=== PATIENT | female | born 2000 | race African-American/Black ===

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

== ENCOUNTER 2022-10-30 16:04 | Emergency (ER) | payer MEDICAID, SELFPAY ==
[2022-10-30 16:05] VITALS: BP 121/71; PULSE 93; RESP 16; TEMP 36.6; O2SAT 98; BMI 25.4
--- NOTE | 2022-10-30 16:41 | EDS_ITS ---
HPI History of Present Illness Chief Complaint: Ear Problem Detail of Chief Complaint: Right ear pain, right head pain, right shoulder pain Informant: patient Onset/Context/Timing Onset: Month(s) (3 months) Context: Gradual Onset Timing: Waxes and wanes Current Severity: Moderate Maximum Severity: Moderate Narrative Narrative: Patient presents secondary to pain to the right side of her head, neck, shoulder. Symptoms for started in July. She thought she had an ear infection went to urgent care. She was given antibiotic for a mild ear infection but symptoms never seem to resolve. Over the last several weeks symptoms have worsened significantly. She had to leave work early yesterday due to pain. She is been taking Tylenol, ibuprofen, Naprosyn [id number] without improvement. PFSH PFSH Medical History no medical history no medical history Home Medications ferrous sulfate 325 mg (65 mg iron) tablet (Iron (ferrous sulfate)) 325 mg PO BID 01/05/18 [History Last Taken Unknown] amoxicillin 875 mg-potassium clavulanate 125 mg tablet 1 tab PO BID #20 tabs 10/30/22 [Rx Last Taken Unknown] cyclobenzaprine 10 mg tablet 10 mg PO BID PRN muscle spasm #10 tabs 10/30/22 [Rx Last Taken Unknown] fluconazole 150 mg tablet (Diflucan) 150 mg PO DAILY #1 TAB 10/30/22 [Rx Last Taken Unknown] naproxen 500 mg tablet (Naprosyn) 500 mg PO BID PRN pain #20 tabs 10/30/22 [Rx Last Taken Unknown] Allergy/AdvReac Type Severity Reaction Status Date / Time pistachio nut Allergy Swelling Verified 10/30/22 16:07 Social History Smoking Status: Never smoker ROS ROS ED Constitutional Constitutional ED: Denies chills or fever(s) Eyes Eyes: Denies change in vision or discharge from eye(s) ENT ENT ED: Reports ear pain right; Denies discharge from eye(s), rhinorrhea or sore throat Cardiovascular Cardiovascular: Denies chest pain or palpitations Respiratory/Chest Respiratory/Chest: Denies cough or dyspnea Gastrointestinal Gastrointestinal: Denies abdominal pain, diarrhea, nausea or vomiting Genitourinary Genitourinary ED: Denies dysuria Musculoskeletal Musculoskeletal: Reports extremity pain; Denies back pain Integumentary Denies Abrasions or rash Neurologic Neurologic: Denies headache(s) or weakness Psychiatric Psychiatric: Denies anxiety or depression Endocrine Endocrinology: Denies polydipsia or polyuria Allergic/Immunologic Allergic/Immunologic ED: Denies lip swelling or urticaria EXAM Physical Exam Const Vital Signs: 10/30/22 16:05 Temperature 97.8 F Temperature Source Temporal Pulse Rate 93 Respiratory Rate 16 Blood Pressure 121/71 H Blood Pressure Mean 87 Pulse Ox 98 Oxygen Delivery Method Room Air Positive well nourished and well developed General Appearance ED: well developed HEENT Reports normocephalic and head/scalp atraumatic HEENT Narrative: TMs are clear bilaterally with no sign of infection. No tenderness with palpation over the mastoid air cells. Eyes PERRL and EOMs intact bilaterally Neck supple Neck Narrative: No midline cervical tenderness. Chest Wall inspection of chest normal and palpation of chest normal Resp normal respiratory effort and clear to auscultation bilaterally Cardio regular rate and regular rhythm GI normal to inspection, nondistended, normoactive bowel sounds Palpation: soft Extremity normal to inspection Extremity Narrative: Muscular tenderness to palpation over the top of the right shoulder. Palpable spasm noted. Strong distal pulses with full range of motion of the right upper extremity. Neuro oriented x3 and no sensory deficits noted Sensorium / Orientation: alert Motor Exam: strength 5/5 throughout Psych mental status grossly normal Skin no rashes or lesions noted MDM MDM MDM Narrative Medical decision making narrative: Patient sent for CT scan of the head. Radiography Diagnostic Testing: Clinical Impression(s) from Imaging Studies Brain CT 10/30/22 16:41 IMPRESSION: There are no acute intracranial findings. There is mild maxillary sinus disease. No fluid in the middle ears. Electronically Signed: Grabiel Posada MD at 17:21 EST Reading Location ID and State: [facility] / [place] , Service support , Treatment and Re-Evaluation Narrative: CT head reveals no acute intracranial findings. There is mild maxillary sinus disease. No fluid noted in the middle ears. No abnormalities noted along the mastoid air cells. Patient will be treated with a course of Augmentin to cover her sinuses as she has been having ongoing symptoms for the last several months. My suspicion is that a lot of her symptoms are secondary to muscle spasm in the right neck and shoulder region. She will be given Naprosyn and Flexeril. Discharge Plan Triage Chief Complaint: Ear Problem ED Provider: Jeni Narayan Dx/Rx/DC Orders Clinical Impression: Muscle spasm, Sinusitis Instructions: ED Muscle Spasm, ED Sinusitis (Antibiotic Treatment) Prescriptions: New amoxicillin-pot clavulanate 875-125 mg tablet 1 tab PO BID Qty: 20 0RF cyclobenzaprine 10 mg tablet 10 mg PO BID PRN (Reason: muscle spasm) Qty: 10 0RF naproxen [Naprosyn] 500 mg tablet 500 mg PO BID PRN (Reason: pain) Qty: 20 0RF fluconazole [Diflucan] 150 mg tablet 150 mg PO DAILY Qty: 1 0RF No Action ferrous sulfate [Iron (ferrous sulfate)] 325 MG tablet 325 mg PO BID Primary Care Provider: Care Physician,No Primary Referrals: Malachi Miller MD [Med Staff - [employer]] - 1-2 Weeks NOT,DEFINED [Non-Staff] - Disposition Disposition: Home, Self Care
--- NOTE | 2022-10-30 16:41 | CT_ITS ---
STUDY: CT BRAIN WITHOUT CONTRAST REASON FOR EXAM: Female, 21 years old. pain -- right ear, head pain TECHNIQUE: Transaxial CT imaging of the brain was performed without administration of intravenous contrast material. Individualized dose optimization techniques were used for this CT. COMPARISON: 01.14.17 FINDINGS: Normal calvarium. Normal soft tissues. Normal size ventricles and extra-axial spaces for the patient''s age. Normal white matter tracts of the cerebral hemispheres. Normal basal ganglia and thalami. Normal brainstem. Normal cerebellum. There is no intracranial hemorrhage. There are no findings of an acute ischemic infarction. There is mild maxillary sinus disease. ASPECTS 10 CT/Brain/Head without Contrast IMPRESSION: There are no acute intracranial findings. There is mild maxillary sinus disease. No fluid in the middle ears. Electronically Signed: Grabiel Posada MD at 17:21 EST ,
== END 2022-10-30 18:19 | disposition home or self-care (01) ==
PROVIDERS: Emergency Provider Emergency Medicine; Visit Provider Emergency Medicine
DX: M62.838 Other muscle spasm (principal); J32.9 Chronic sinusitis, unspecified
CPT/HCPCS: 70450; 99282

== ENCOUNTER 2024-12-05 11:36 | Observation (INO) | payer SELFPAY ==
[2024-12-05] VITALS (14 sets, daily range): BP systolic 94–112; BP diastolic 52–77; PULSE 47–78; RESP 14–19; TEMP 36.4–36.6; O2SAT 95–100; BMI 26.2; BMI 25.7
--- NOTE | 2024-12-05 14:09 | EKG12_ITS ---
Test Reason : Blood Pressure : */* mmHG Vent. Rate : 67 BPM Atrial Rate : 67 BPM P-R Int : 162 ms QRS Dur : 82 ms QT Int : 386 ms P-R-T Axes : 61 68 12 degrees QTcB Int : 407 ms Sinus rhythm with marked sinus arrhythmia Otherwise normal ECG Confirmed by KATT HOUGH, OSMEL ([id number]), editorial intern RUDDY MALIK ([id number]) on 12/08/2024 7:28:20 AM Referred By: MARIA M Confirmed By: OSMEL BOLIVAR MD
--- NOTE | 2024-12-05 14:09 | CT_ITS ---
PROCEDURE: SINUS/FACIAL BONE REASON FOR EXAM: Injury. TECHNIQUE: CT of the paranasal sinuses without contrast. COMPARISON: Comparison is made with prior CT scan of the head done earlier in the day. FINDINGS: Frontal: Frontal sinuses and frontoethmoidal recesses appear clear. Ethmoid: Ethmoid air cells appear clear. Sphenoid: Sphenoid sinuses and sphenoethmoidal recesses appear clear. Maxillary: Maxillary sinuses appear clear. The ostiomeatal units appear widely patent. Turbinates: Unremarkable. Nasal Septum: Midline. No large nasal septal spur. Mastoids/Middle Ears: Clear at visualized levels. Visualized intracranial structures are unremarkable. CT/Sinus/Facial Bone IMPRESSION: No acute abnormality is seen. One or more dose reduction techniques were used (e.g., Automated exposure contr ol, adjustment of the mA and/or kV according to patient size, use of iterative reconstruction technique). Reading Location: [place] [id number]
--- NOTE | 2024-12-05 14:09 | CT_ITS ---
EXAM: BRAIN/HEAD WITHOUT CONTRAST CLINICAL HISTORY: History of seizures. COMPARISON: None. TECHNIQUE: Multiple axial tomographic images were obtained without intravenous contrast administration. Coronal and sagittal reconstruction was obtained as well. FINDINGS: No evidence of intracranial hemorrhage. No mass effect. Normal examination. CT/Brain/Head without Contrast IMPRESSION: Normal examination. Reading Location: [place] [address]
[2024-12-05 14:17] LABS: Absolute Lymphocyte Count 0.85 X10^3/uL (0.83-4.51); Absolute Neutrophil Count 2.5 X10^3/uL (2.0-7.7); Basophil# 0.02 X10^3/uL; Basophil% 0.5 % (0-1); Eosinophil# 0.05 X10^3/uL; Eosinophils% 1.3 % (0-5); Hematocrit 33.7 % (37-47); Hemoglobin 10.6 g/dL (12.0-15.0); Lymphocyte # 0.85 X10^3/ul (0.83-4.51); Lymphocyte % 22.3 % (19-41); Mean Corp Hgb Conc 31.5 g/dL (32-36); Mean Corpuscular Hgb 26.6 pg (27.0-32.0); Mean Corpuscular Volume 84.5 fL (81-99); Mean Platelet Vol. 10.1 fl (6.2-12.0); Monocyte# 0.38 X10^3/uL; Monocyte% 9.9 % (0-10); NRBC Flagged by Analyzer 0 % (0-5); Neutrophil # 2.51 X10^3/uL (2.7-7.7); Neutrophil % 65.7 % (47-70); Platelet Count 242 K/mm3 (150-450); RBC Distribution Width SD 43.1 fl (35.1-43.9); Red Blood Count 3.99 M/mm3 (4.2-5.4); White Blood Count 3.8 K/mm3 (4.4-11.0)
[2024-12-05] MEDS: Morphine 4 MG/ML Syringe IV (14:24)
--- NOTE | 2024-12-05 14:41 | EX.ED.DYSGE1 ---
HPI History of Present Illness Chief Complaint: Seizure Informant: patient and parent Narrative Narrative: Patient is a 23-year-old female with prior history of possible seizure versus syncope but does not have a diagnosis of epilepsy presenting after an episode of falling in her bathroom and knocking out her front tooth. Patient states she had a particularly stressful day yesterday. She also notes she was started. Complaint of pelvic cramps. She was not feeling great today and had been texting her mom. Patient remembers texting her mom of the next and she knows she woke up in the bathroom floor with blood running down her face and her front tooth missing. She then called her mom. Mother states this happened around 11 AM. Patient does not remember what happened immediately before that does not he remember walking to the bathroom. She does not take any medication on a daily basis. Patient has similar episode where she was found on the ground back in 2019 and it was thought that maybe she has seizures but she does not see a neurologist regularly take any antiepileptic medications. Per EMS instructions she did bring her tooth in with root intact in a container of oat milk. She is complaining of headache, facial pain as well as abdominal pain which she contributes to her menstrual cramps. Grandfather on maternal side has a history of heart disease and in his 60s but no other medical history reported by the family. Mother is at the bedside. [facility] Medical History (Updated 12/05/24 @ 23:[address] Mesha Tomas, DO) Seizure Anemia Home Medications ?Medication ?Instructions ?Recorded ?Last Taken ?Type NK 12/05/24 Unknown History Allergy/AdvReac Type Severity Reaction Status Date / Time pistachio nut Allergy Swelling Verified 12/05/24 11:37 Family History (Updated 12/05/24 @ 20:[address] Sylvie Devries MD) Mother No problems noted. Father Heart disease Hypertension Heart failure Grandfather , Paternal. Heart disease Heart failure Hypertension PAF (paroxysmal atrial fibrillation) Grandfather , Paternal Heart disease Surgical History No history of previous surgery Social History (Updated 12/05/24 @ 20:[address] Sylvie Devries MD) household members: none housing: apartment Smoking Status: Current every day smoker tobacco type: e-cigarettes alcohol intake: current alcohol intake frequency: holidays/special occasions only substance use type: does not use ROS ROS ED Constitutional Constitutional ED: Denies chills or fever(s) Eyes Eyes: Denies change in vision ENT ENT ED: Reports other Details: Dental trauma, lip pain, facial pain Cardiovascular Cardiovascular: Denies chest pain Respiratory/Chest Respiratory/Chest: Denies cough or dyspnea Gastrointestinal Gastrointestinal: Reports abdominal pain; Denies diarrhea, nausea or vomiting Musculoskeletal Musculoskeletal: Denies arthralgias, myalgias or neck pain Integumentary Reports Abrasions Neurologic Neurologic: Reports headache(s), weakness and other Details: Seizure versus syncopal episode ; Denies paresthesias Hematologic/Lymphatic Hematologic/Lymphatic: Denies easy bleeding or easy bruising EXAM Physical Exam Const Vital Signs: 12/05/24 11:37 12/05/24 12:37 12/05/24 13:00 Temperature 97.8 F Temperature Source Temporal Pulse Rate 77 47 L 49 L Pulse Rate [Lying] Respiratory Rate 14 16 16 Blood Pressure 94/76 106/72 104/65 Blood Pressure [Lying] Blood Pressure [Sitting (for 1 minute prior to obtaining)] Blood Pressure [Standing (for 1 minute prior to obtaining)] Blood Pressure Mean 82 83 78 Blood Pressure Mean [Lying] Blood Pressure Mean [Sitting (for 1 minute prior to obtaining)] Blood Pressure Mean [Standing (for 1 minute prior to obtaining)] Pulse Ox 100 100 100 Oxygen Delivery Method Room Air 12/05/24 14:00 12/05/24 15:00 12/05/24 16:00 Temperature Temperature Source Pulse Rate 62 59 L 73 Pulse Rate [Lying] Respiratory Rate 18 17 15 Blood Pressure 108/65 103/62 111/67 Blood Pressure [Lying] Blood Pressure [Sitting (for 1 minute prior to obtaining)] Blood Pressure [Standing (for 1 minute prior to obtaining)] Blood Pressure Mean 79 75 81 Blood Pressure Mean [Lying] Blood Pressure Mean [Sitting (for 1 minute prior to obtaining)] Blood Pressure Mean [Standing (for 1 minute prior to obtaining)] Pulse Ox 100 98 99 Oxygen Delivery Method Room Air Room Air Room Air 12/05/24 17:00 12/05/24 17:55 12/05/24 18:00 Temperature Temperature Source Pulse Rate 57 L 78 Pulse Rate [Lying] 75 Respiratory Rate 16 15 Blood Pressure 108/66 112/77 Blood Pressure [Lying] 105/58 L Blood Pressure [Sitting (for 1 minute prior to obtaining)] 99/52 L Blood Pressure [Standing (for 1 minute prior to obtaining)] 111/66 Blood Pressure Mean 80 88 Blood Pressure Mean [Lying] 73 Blood Pressure Mean [Sitting (for 1 minute prior to obtaining)] 67 Blood Pressure Mean [Standing (for 1 minute prior to obtaining)] 81 Pulse Ox 98 100 Oxygen Delivery Method 12/05/24 19:00 Temperature Temperature Source Pulse Rate 61 Pulse Rate [Lying] Respiratory Rate 16 Blood Pressure 105/64 Blood Pressure [Lying] Blood Pressure [Sitting (for 1 minute prior to obtaining)] Blood Pressure [Standing (for 1 minute prior to obtaining)] Blood Pressure Mean 77 Blood Pressure Mean [Lying] Blood Pressure Mean [Sitting (for 1 minute prior to obtaining)] Blood Pressure Mean [Standing (for 1 minute prior to obtaining)] Pulse Ox 95 Oxygen Delivery Method Positive well nourished and well developed General Appearance ED: well developed and NAD HEENT Reports TM's clear and moist mucous membranes HEENT Narrative: No obvious malocclusion or trismus. There is dried blood on the patient's face that seem to be coming from her mouth and possibly the right nares but no active epistaxis. No septal hematoma appreciated. Patient's left upper central incisor is missing and at the bedside with the root intact. She has Guy type I fracture to the right upper central incisor. No other dental fracture/avulsion appreciated. Patient does have a superficial laceration to her lower lip that does not involve the vermilion border and is not gaping. trauma Tympanic Membrane ED: Yes TM's clear Eyes PERRL and EOMs intact bilaterally Neck supple General: Negative for tenderness Chest Wall inspection of chest normal and palpation of chest normal Resp normal respiratory effort and clear to auscultation bilaterally Cardio regular rate and regular rhythm GI non-distended Inspection: Negative for abdominal distention Auscultation: normoactive bowel sounds Palpation: soft and tender suprapubic; Negative for guarding Extremity normal to inspection Extremity Narrative: No deformity of extremities. General Extremety ED: Negative for edema or tenderness General Extremity: Negative for edema Neuro oriented x3 Neuro Narrative: No focal deficits appreciated. Moving all extremities. Generally weak and tired but answers questions appropriately. Sensorium / Orientation: alert Motor Exam: general weakness Psych Mood & Affect: depressed and tearful Skin no rashes or lesions noted Skin Narrative: Facial trauma described in ENT exam MDM MDM MDM Narrative Medical decision making narrative: Patient's evaluated for syncopal versus seizure activity. This was not witnessed. Patient does not remember falling or even being in her bathroom. She remembers waking up on the floor with blood around her face. She sustained significant injury with avulsion of her left center upper incisor. See procedure note but reimplantation attempted in the emergency room. Differential includes cardiogenic syncope, vasovagal syncope, hypovolemia, electrolyte abnormality, symptomatic anemia and seizure-like activity. Also intracranial hemorrhage, jaw fracture no other traumatic injury. Workup shows microcytic anemia with a hemoglobin of 10.6 and a mild leukopenia with white blood cell count of 3.8. Platelets are normal. CMP normal. Liver panel normal. Urinalysis does show 50 ketones but not consistent with infection. She does have positive opiates and her drug screen with this is obtained after patient received IV morphine. EKG shows normal sinus rhythm with sinus arrhythmia. Patient does have intermittent bradycardia down into the 40s in the emergency room but is not sustained. CT imaging does not show any acute traumatic process. The cause of her fall and injury is not clear. Did offer the patient admission for overnight evaluation. In addition for further pain control. Patient is agreeable. Case discussed with hospitalist, Dr. Devries. While in the ER patient initially received morphine for pain control and then dental block. She then received Toradol, IV fluids and [place]. Lab Data Attestation: I reviewed the patient's lab results. Labs: Laboratory Results - last 24 hr 12/05/24 12/05/24 12:33 17:00 WBC 3.8 L RBC 3.99 L Hgb 10.6 L Hct 33.7 L MCV 84.5 MCH 26.6 L MCHC 31.5 L RDW Std Deviation 43.1 RDW Coeff of Dominick 14.0 Plt Count 242 MPV 10.1 Immature Gran % (Auto) 0.300 Neut % (Auto) 65.7 Lymph % (Auto) 22.3 [place] % (Auto) 9.9 Eos % (Auto) 1.3 Baso % (Auto) 0.5 Absolute Neuts (auto) 2.5 Absolute Lymphs (auto) 0.85 Nucleated RBC % 0 Sodium 141 Potassium 3.4 L Chloride 106 Carbon Dioxide 25.0 Anion Gap 9 BUN 18 Creatinine 0.76 Estim Creat Clear Calc 100.78 Est GFR (MDRD) Af Amer 123 Est GFR (MDRD) Non-Af 102 BUN/Creatinine Ratio 23.8 H Glucose 86 Calcium 8.7 Magnesium 1.9 Total Bilirubin 0.40 AST 13 L ALT 18 Alkaline Phosphatase 53 Total Protein 7.2 Albumin 3.5 Globulin 3.7 Albumin/Globulin Ratio 0.9 Vitamin B12 445 Urine Color Yellow Urine Clarity Clear Urine pH 6.0 Ur Specific [place] 1.020 Urine Protein 100 H Urine Glucose (UA) Normal Urine Ketones 50 H Urine Occult Blood 25 H Urine Nitrite Negative Urine Bilirubin Negative Urine Urobilinogen Normal Ur Leukocyte Esterase Negative Urine RBC 0 SEEN Urine WBC 0-5 SEEN Ur Squamous Epith Cells 0-5 SEEN Urine Bacteria 0 SEEN Urine Mucus 0 SEEN Urine Test Negative Urine Opiates Screen POSITIVE H Urine Methadone Screen NEGATIVE Ur Barbiturates Screen NEGATIVE Ur Phencyclidine Scrn NEGATIVE Ur Amphetamines Screen NEGATIVE MDMA (Ecstasy) Screen NEGATIVE U Benzodiazepines Scrn NEGATIVE Urine Cocaine Screen NEGATIVE U Cannabinoids Screen NEGATIVE Ur Drug Screen Comment Radiography Diagnostic Testing: Clinical Impression(s) from Imaging Studies Brain CT 12/05/24 14:09 IMPRESSION: Normal examination. Reading Location: [place] [id number] Facial/Sinus 12/05/24 14:09 IMPRESSION: No acute abnormality is seen. One or more dose reduction techniques were used (e.g., Automated exposure control, adjustment of the mA and/or kV according to patient size, use of iterative reconstruction technique). Reading Location: [place] [id number] Rhythm Strip Rhythm Strip: Sinus Rhythm Rate: 67 Ectopy: None EKG Initial EKG: Attestation: I personally reviewed and interpreted this EKG as follows: Interpretation: Sinus Rhythm Comments: Normal sinus rhythm at a rate of 67 beats per minutes with sinus arrhythmia Normal axis Normal intervals Normal ST segments No delta waves, dagger Q waves consistent with HOCM, prolonged QT or WI interval Prior EKG tracings: not available for review Prior: No Prior Management Discussion w/another healthcare provider: Hospitalist Procedures Other Procedures Procedure(s): Tooth avulsion with replacement and splinting of tooth number 7 Performed emergently to help decrease the chance of rejecting the tooth. Tooth is taken out of it milk bath. Care taken to avoid handling the root. Rinsed off with normal saline. Inserted back into the gum line. Is still slightly extruded. Cold pack used to splint the tooth anterior and posterior. In the meantime periosteal/inferior alveolar block performed for better pain control. Further direct pressure applied to get back to anatomic alignment of the tooth. Patient pain but tolerated procedure well. No immediate complications. Discharge Plan Dx/Rx/DC Orders Clinical Impression: Collapse, Tooth avulsion Disposition Disposition: Acute Care Hospital [facility] Discharge Date/Time: 12/05/24 21:56
[2024-12-05 14:43] LABS: ALB/GLOB Ratio 0.9 RATIO (0.9-2.4); AST(SGOT) 13 U/L (15-37); Alanine Aminotransfer ALT/SGPT 18 U/L (13-56); Albumin, Serum 3.5 g/dL (3.2-5.0); Alkaline Phosphatase 53 U/L (45-117); Anion Gap 9 (5-15); BUN 18 mg/dL (7-18); BUN/Creat Ratio 23.8 RATIO (10-20); Calcium,Total 8.7 mg/dL (8.5-10.1); Chloride 106 mmol/L (98-107); Creatinine, Serum 0.76 mg/dL (0.55-1.02); EST Glomerular Filtration Rate 102 mL/min (>60); Est Glom Filt Rate - Afr Amer 123 mL/min (>60); Estimated Creatinine Clearance 100.78 ml/min; Globulin 3.7 g/dL (2.2-4.2); Glucose 86 mg/dL (74-106); Potassium 3.4 mmol/L (3.5-5.1); Protein, Total 7.2 g/dL (6.4-8.2); Sodium Level 141 mmol/L (136-145)
[2024-12-05] MEDS: Bupivacaine 0.5%/Epi 1.8 ML Syringe INFILT (15:07)
[2024-12-05] MEDS: Acetaminophen 325 MG Tablet 650 MG PO ×2 (15:52→23:07)
[2024-12-05] MEDS: 0.9% Normal Saline (1000mL) 1,000 ML 999 ML IV (15:52)
[2024-12-05] MEDS: Ketorolac 15 MG/ML Vial IV ×2 (15:52→22:55)
[2024-12-05 17:13] LABS: Bacteria 0 SEEN /hpf (None Seen); Mucous, Urine 0 SEEN /hpf (<or=2+)
[2024-12-05 17:19] LABS: Color, Urine Yellow (Yellow); Glucose, Dipstick Normal (Normal); Ketone-Dipstick 50 mg/dl (Negative); Leukocyte Esterase-Dipstick Negative /ul (Negative); Nitrite-Dipstick Negative (Negative); Occult Blood-Urine 25 /ul (Negative); Protein-Dipstick 100 mg/dl (Negative); Urine Bilirubin Dipstick Negative (Negative); Urine Clarity Clear (Clear); Urine Urobilinogen Normal (Normal)
[2024-12-05 17:36] LABS: Internal QC Validated? YES +Cl - CLEAR BKGD; Pregnancy, Urine Negative Negative; Red Blood Cells-Urine 0 SEEN /hpf (0-5); Squamous Epithelial Cells - UA 0-5 SEEN /hpf (5-10); White Blood Cells 0-5 SEEN /hpf (0-5)
[2024-12-05 17:47] LABS: Amphetamine Urine NEGATIVE (<1000 ng/mL); Barbiturate Urine VISTA NEGATIVE (< 200 ng/mL); Benzodiazepine Urine VISTA NEGATIVE (< 200 ng/mL); Cocaine Urine VISTA NEGATIVE (< 300 ng/mL); Ecstacy Urine VISTA NEGATIVE (< 500 ng/mL); Methadone Urine VISTA NEGATIVE (< 300 ng/mL); Opiates Urine POSITIVE (< 300 ng/mL); PCP Urine NEGATIVE (< 25 ng/mL); THC Urine VISTA NEGATIVE (< 50 ng/mL); Vista UDS pH Range 5
--- NOTE | 2024-12-05 19:58 | PCM.HP.STD ---
HPI - General General Date of Admission: 12/05/24 Date of Service: 12/05/24 Chief Complaint: Syncope versus seizure HPI Narrative The patient is a 23-year-old female with previously noted past medical history transient anemia in 2017 otherwise low normal hemoglobin level of unclear etiology who presents to the [facility] ED on 12/05/2024 with history of possible syncopal versus questionable seizure activity noting that she been in the bathroom and awoke on the floor reportedly having pelvic cramps starting up to it and initially feeling not very well texting her mother at that time just prior to the event. Patient notes that she woke with blood running down her face and saw that her front tooth was missing prompting a call to her mother who noted this was approximate around 11 AM. She does not remember what happened immediately before the event. She notes that she had a similar episode in 2019 and there was some question of seizure activity but she is not followed with neurologist and is not on any antiepileptic medications. In the ED patient is complaining of facial discomfort, headache as well as abdominal cramping noting that it is currently her menstrual cycle. She did not loose bowel or bladder function during the event. She does report she was groggy after the event upon awaking but was able to function and interact with her mother but was very fatigued per her mother's report. Patient denies her cycles being heavy but reports that she has them for 3 to 5 days and uses at least 4 tampons daily thus some concern that maybe they are heavy and she is just used to this. She notes that in the past when she had her syncopal versus seizure event she was not on her cycle at that time. 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 From discussion with her and her mother she is very close to her family so being away from her mother has been very stressful. This is the first time she is lived on her own and had a job to pay for all her bills and so forth. From discussion likely patient is not hydrating well enough. In the ED workup included T97.8, heart rate 77, BP 94/76, respiratory rate 14, under percent on room air, orthostatics with some alteration but not enough to be considered significant, most recent repeat vitals heart rate 61, BP 105/64, respiratory rate 77, 95% room air, CBC with WC 3.8, hemoglobin 10.6, MCV 84.5, platelet 242 without shift, CMP with potassium 3.4 otherwise unremarkable, urinalysis with no obvious evidence of UTI with specific gravity mildly elevated 1.020, negative testing, UDS with positive opiates but she had morphine in the ED ~ 2 hours prior to the UA being obtained, CT the brain unremarkable, CT facial/sinus with no acute abnormality identified. In the ED given tooth avulsion replacement performed per ED physician as well as splinting of tooth #7 noted to have been taken out of the milk bath, who rinsed with normal saline and inserted back into the gumline with cold packing with noted periosteal/inferior alveolar block for improved pain control. In the ED patient ministered 1 L normal saline, Tylenol 650 mg p.o. x 1, Toradol 50 mg IV x 1, morphine 4 mg IV x 1 and bupivacaine/epi used for block. [facility] Medical History (Updated 12/05/24 @ 20:[address] Sylvie Devries MD) Anemia Home Medications ?Medication ?Instructions ?Recorded ?Last Taken ?Type NK 12/05/24 Unknown History Allergy/AdvReac Type Severity Reaction Status Date / Time pistachio nut Allergy Swelling Verified 12/05/24 11:37 Family History (Updated 12/05/24 @ 20:[address] Sylvie Devries MD) Mother No problems noted. Father Heart disease Hypertension Heart failure Grandfather , Paternal. Heart disease Heart failure Hypertension PAF (paroxysmal atrial fibrillation) Grandfather , Paternal Heart disease Surgical History (Updated 12/05/24 @ 20:[address] Sylvie Devries MD) No history of previous surgery Social History (Updated 12/05/24 @ 20:[address] Sylvie Devries MD) household members: none housing: apartment Smoking Status: Never smoker alcohol intake: current alcohol intake frequency: holidays/special occasions only substance use type: does not use ROS ROS Narrative Admission Review of Systems: CONSTITUTIONAL: No weight loss, fever, chills,+ weakness or fatigue. HEENT: + Trauma to the face with small laceration to the lip with no current bleeding, seventh tooth avulsion corrected per ED, mild headache. Eyes: No visual loss, blurred vision, double vision or yellow sclerae. Ears, Nose, Throat: No hearing loss, sneezing, congestion, runny nose or sore throat. SKIN: No rash or itching, lesions, wounds. CARDIOVASCULAR: + Questionable syncopal versus seizure event. No chest pain, chest pressure or chest discomfort, palpitations, edema, orthopnea. RESPIRATORY: No shortness of breath, cough or sputum, wheezing, hemoptysis. GASTROINTESTINAL: No anorexia, nausea, vomiting or diarrhea, abdominal pain, melena, BRBPR. GENITOURINARY: No dysuria, frequency, urgency or retention. NEUROLOGICAL: + Questionable syncopal versus seizure event, mild headache. No headache, paralysis, ataxia, numbness or tingling in the extremities, focal weakness, change in bowel or bladder control, seizure. MUSCULOSKELETAL: + muscle, back pain, joint pain or stiffness. HEMATOLOGIC: + Anemia, currently on menstrual cycle, no easy bruising. LYMPHATICS: No enlarged nodes. No history of splenectomy. PSYCHIATRIC: + No history of anxiety/depression but suspect may have underlying undiagnosed. ENDOCRINOLOGIC: No reports of sweating, cold or heat intolerance. No polyuria or polydipsia. ALLERGIES: No history of asthma, hives, eczema or rhinitis. Vital Signs Vital Signs Vital Signs: 12/05/24 11:37 12/05/24 12:37 12/05/24 13:00 Temperature 97.8 F Temperature Source Temporal Pulse Rate 77 47 L 49 L Pulse Rate [Lying] Respiratory Rate 14 16 16 Blood Pressure 94/76 106/72 104/65 Blood Pressure [Lying] Blood Pressure [Sitting (for 1 minute prior to obtaining)] Blood Pressure [Standing (for 1 minute prior to obtaining)] Blood Pressure Mean 82 83 78 Blood Pressure Mean [Lying] Blood Pressure Mean [Sitting (for 1 minute prior to obtaining)] Blood Pressure Mean [Standing (for 1 minute prior to obtaining)] Pulse Ox 100 100 100 Oxygen Delivery Method Room Air 12/05/24 14:00 12/05/24 15:00 12/05/24 16:00 Temperature Temperature Source Pulse Rate 62 59 L 73 Pulse Rate [Lying] Respiratory Rate 18 17 15 Blood Pressure 108/65 103/62 111/67 Blood Pressure [Lying] Blood Pressure [Sitting (for 1 minute prior to obtaining)] Blood Pressure [Standing (for 1 minute prior to obtaining)] Blood Pressure Mean 79 75 81 Blood Pressure Mean [Lying] Blood Pressure Mean [Sitting (for 1 minute prior to obtaining)] Blood Pressure Mean [Standing (for 1 minute prior to obtaining)] Pulse Ox 100 98 99 Oxygen Delivery Method Room Air Room Air Room Air 12/05/24 17:00 12/05/24 17:55 12/05/24 18:00 Temperature Temperature Source Pulse Rate 57 L 78 Pulse Rate [Lying] 75 Respiratory Rate 16 15 Blood Pressure 108/66 112/77 Blood Pressure [Lying] 105/58 L Blood Pressure [Sitting (for 1 minute prior to obtaining)] 99/52 L Blood Pressure [Standing (for 1 minute prior to obtaining)] 111/66 Blood Pressure Mean 80 88 Blood Pressure Mean [Lying] 73 Blood Pressure Mean [Sitting (for 1 minute prior to obtaining)] 67 Blood Pressure Mean [Standing (for 1 minute prior to obtaining)] 81 Pulse Ox 98 100 Oxygen Delivery Method 12/05/24 19:00 Temperature Temperature Source Pulse Rate 61 Pulse Rate [Lying] Respiratory Rate 16 Blood Pressure 105/64 Blood Pressure [Lying] Blood Pressure [Sitting (for 1 minute prior to obtaining)] Blood Pressure [Standing (for 1 minute prior to obtaining)] Blood Pressure Mean 77 Blood Pressure Mean [Lying] Blood Pressure Mean [Sitting (for 1 minute prior to obtaining)] Blood Pressure Mean [Standing (for 1 minute prior to obtaining)] Pulse Ox 95 Oxygen Delivery Method Weight Weight: 142 lb 6.698 oz Body Mass Index (BMI) 26.2 Physical Exam Narrative Physical Examination: General: Awake, alert, oriented x 3 and cooperative, seated upright in the ED bed, very flat affect, not frequently making eye contact, intermittently tearful. Skin: Normal color, normal turgor, no icterus, no cyanosis except for small superficial laceration to the lower lip with no active bleeding, recent tooth avulsion corrected per ED. HEENT: AT aside from tooth avulsion which has been corrected and small superficial laceration to the lower lip/NC, EOMI, PERRLA, mildly dry MM, no carotid bruits or JVD noted, see skin. Lungs: Mildly diminished, appropriate effort, no rales, ronchi or wheezing. Heart: Currently regular rate, sinus arrhythmia noted on air sampling and monitoring; no gallop, rub audible. Abdomen: Soft, NTTP, ND, normal BS, no HSM. Extremities: No cyanosis, clubbing, or edema. Neurological: Patient awake, alert, oriented as noted, cognitive function intact; pupils equally reactive to light and accommodation, cranial nerves grossly normal, moving all 4 extremities, no focal deficits, strength preserved. Psychiatric: Affect appears flat, fatigued, not making eye contact regularly, do suspect possibility of underlying anxiety/depression, situational, recently moved out of her mother's home and living on her own for the last 3 months. Results Lab / Micro Data 12/05/24 12:33 12/05/24 12:33 Labs: Laboratory Results - last 24 hr 12/05/24 12:33: WBC 3.8 L, RBC 3.99 L, Hgb 10.6 L, Hct 33.7 L, MCV 84.5, MCH 26.6 L, MCHC 31.5 L, RDW Std Deviation 43.1, RDW Coeff of Dominick 14.0, Plt Count 242, MPV 10.1, Immature Gran % (Auto) 0.300, Neut % (Auto) 65.7, Lymph % (Auto) 22.3, [place] % (Auto) 9.9, Eos % (Auto) 1.3, Baso % (Auto) 0.5, Absolute Neuts (auto) 2.5, Absolute Lymphs (auto) 0.85, Nucleated RBC % 0, Sodium 141, Potassium 3.4 L, Chloride 106, Carbon Dioxide 25.0, Anion Gap 9, BUN 18, Creatinine 0.76, Estim Creat Clear Calc 100.78, Est GFR (MDRD) Af Amer 123, Est GFR (MDRD) Non-Af 102, BUN/Creatinine Ratio 23.8 H, Glucose 86, Calcium 8.7, Total Bilirubin 0.40, AST 13 L, ALT 18, Alkaline Phosphatase 53, Total Protein 7.2, Albumin 3.5, Globulin 3.7, Albumin/Globulin Ratio 0.9 12/05/24 17:00: Urine Color Yellow, Urine Clarity Clear, Urine pH 6.0, Ur Specific Merlin 1.020, Urine Protein 100 H, Urine Glucose (UA) Normal, Urine Ketones 50 H, Urine Occult Blood 25 H, Urine Nitrite Negative, Urine Bilirubin Negative, Urine Urobilinogen Normal, Ur Leukocyte Esterase Negative, Urine RBC 0 SEEN, Urine WBC 0-5 SEEN, Ur Squamous Epith Cells 0-5 SEEN, Urine Bacteria 0 SEEN, Urine Mucus 0 SEEN, Urine Test Negative, Urine Opiates Screen POSITIVE H, Urine Methadone Screen NEGATIVE, Ur Barbiturates Screen NEGATIVE, Ur Phencyclidine Scrn NEGATIVE, Ur Amphetamines Screen NEGATIVE, MDMA (Ecstasy) Screen NEGATIVE, U Benzodiazepines Scrn NEGATIVE, Urine Cocaine Screen NEGATIVE, U Cannabinoids Screen NEGATIVE, Ur Drug Screen Comment Imaging Radiology Impression Brain CT 12/05/24 14:09 IMPRESSION: Normal examination. Reading Location: [facility]-1 Facial/Sinus 12/05/24 14:09 IMPRESSION: No acute abnormality is seen. One or more dose reduction techniques were used (e.g., Automated exposure control, adjustment of the mA and/or kV according to patient size, use of iterative reconstruction technique). Reading Location: [facility]--1 Assessment & Plan Assessment/Plan (1) Collapse: (2) Tooth avulsion: PLAN: Plan The patient is a 23-year-old female with previously noted past medical history transient anemia in 2018 otherwise low normal hemoglobin level of unclear etiology who presents to the [facility] ED on 12/05/2024 with history of possible syncopal versus questionable seizure activity noting that she been in the bathroom and awoke on the floor reportedly having pelvic cramps starting up to it and initially feeling not very well texting her mother at that time just prior to the event. #1. Syncopal Event versus Seizure activity with collapse and 7th tooth avulsion/facial trauma: Unclear etiololgy, EKG in ED w/ sinus arrhythmia without evidence of acute ischemia but on monitor she occasional decreases into the 40s but asymptomatic. Will admit to PCU, place on a monitored bed to assure no acute myocardial infarction with serial cardiac enzymes and EKGs as needed. Will maintain on fall precautions,repeat AM orthostatic VS, obtain ECHO, obtain MRI of the brain to be cautious, obtain EEG w/ neurology consultation, obtain mag, maintain on fall precautions. Continue dental care per ED prior recommendations with follow-up outpatient with [facility] dentistry. Will continue with soft diet until evaluation with dentistry. #2. Hypokalemia: Admission K+ 3.4, magnesium level requested, supplementation given, repeat level in AM. #3. Normocytic anemia, chronic but remote suspected primarily secondary to heavy menstrual cycles: Admission hemoglobin 10.6, MCV 84.5, unclear if related, remotely has also been low, currently on her cycle and unclear if there is menorrhagia causing this etiology primarily, will obtain iron panel, ferritin, vitamin B12, repeat CBC in AM. #4. Possible underlying Anxiety/Depression, notable flat affect, increased situation stress with transition to her own apt/out of her mother's home: Would benefit from ongoing discussions and potentially counseling as do suspect likely some underlying anxiety/decreased mood with his recent transition. #5. DVT prophylaxis: Low risk given observation admission. Charges/Coding Visit Charges Inpatient E&M: 16090 Init Hosp L2
[2024-12-05] MEDS: HYDROcodone Bitartrate/Apap 5/325 Tablet PO (20:03)
[2024-12-05 21:04] LABS: Magnesium 1.9 mg/dL (1.6-2.6)
[2024-12-05 21:12] LABS: Vitamin B12 445 pg/mL (211-911)
--- NOTE | 2024-12-05 22:25 | ECHOD_ITS ---
Version 2 Reason For Study: Syncope Procedure This was a 2D Doppler, Color Flow transthoracic echocardiogram. Exam performed portable in patient room. Left Ventricle Normal LV size. Left ventricular systolic function is normal. The left ventricular ejection fraction is 70 %. Normal diastology for age. No regional wall motion abnormalities noted. Right Ventricle Normal RV size. Normal systolic function. Atria Normal left atrium. Normal right atrium. Mitral Valve Normal mitral valve. Tricuspid Valve Normal tricuspid valve. Aortic Valve Normal aortic valve. Trisinus/trileaflet aortic valve. Pulmonic Valve Normal pulmonic valve. Great Vessels Normal aortic root. The pulmonary artery is normal size. Normal inferior vena cava. Pericardium/Pleural No pericardial effusion. MMode/2D Measurements & Calculations LVIDd: 4.0 cm IVSd: 0.84 cm Ao root diam: 2.4 cm LVIDs: 2.2 cm LVPWd: 0.98 cm RVDd: 3.4 cm FS: 43.5 % _ LAV(MOD-bp): 28.5 ml LVAd ap4: 26.7 cm2 LVAd ap2: 25.5 cm2 LAV(MOD-bp) Indexed: 17.5 ml/m2 LVLd ap4: 7.6 cm LVLd ap2: 7.7 cm LAV(MOD-sp2): 29.3 ml EDV(MOD-sp4): 79.0 ml EDV(MOD- sp2): 71.2 ml LAV(MOD-sp4): 28.7 ml EDV(sp4-el): 80.2 ml EDV(sp2- el): 72.0 ml LVAs ap4: 12.6 cm2 LVAs ap2: 12.5 cm2 LVLs ap4: 5.8 cm LVLs ap2: 6.5 cm ESV(MOD-sp4): 24.2 ml ESV(MOD- sp2): 20.9 ml ESV(sp4-el): 23.0 ml ESV(sp2- el): 20.6 ml EF(MOD-sp4): 69.4 % EF(MOD- sp2): 70.7 % EF(sp4-el): 71.3 % _ SV(MOD-sp4): 54.9 ml SV(MOD-sp2): 50.4 ml SV(sp4- el): 57.2 ml SI(MOD-sp4): 33.8 ml/m2 SI(MOD-sp2): 31.0 ml/m2 _ LA A4 area: 12.9 cm2 LA dimension(2D): 2.7 cm RA A4 area: 12.4 cm2 _ TAPSE: 2.3 cm Time Measurements MV dec time: 0.22 sec Doppler Measurements & Calculations MV E max niko: 109.4 cm/sec Lat Peak E' Niko: 16.8 cm/sec Med Peak E' Niko: 15.0 cm/sec MV A max niko: 42.6 cm/sec E/E' lat: 6.5 E/E' med: 7.3 MV E/A: 2.6 _ Ao V2 max: 137.8 cm/sec LV V1 max: 111.4 cm/sec MV dec slope: 502.8 cm/sec2 Ao max P.6 mmHg LV V1 max P.0 mmHg Ao V2 mean: 86.3 cm/sec LV V1 mean P.6 mmHg Ao mean P.4 mmHg LV V1 mean: 74.5 cm/sec Ao V2 VTI: 28.3 cm LV V1 VTI: 25.1 cm AV (velocity ratio): 0.89 _ PA V2 max: 93.6 cm/sec ECHO/Echo Complete Interpretation Summary Normal LV size. Left ventricular systolic function is normal. The left ventricular ejection fraction is 70 %. Normal diastology for age. Structurally normal valves. Ordering Physician: Sylvie Devries Referring Physician: Eleanor PCP Performed By: Miladis Heller RDCS
[2024-12-05] MEDS: Potassium Chloride Oral Tablet 20 MEQ 40 MEQ PO (22:55)
[2024-12-05] MEDS: 0.9% Normal Saline (1000mL) 1,000 ML 100 ML IV (23:08)
[2024-12-05] MEDS: oxyCODONE 5 MG Tablet PO (23:08)
[2024-12-05 23:31] LABS: Ferritin 4 ng/mL (8-252); Iron 67 ug/dL (50-170); Iron Binding Capacity,Total 474 ug/dL (250-450); PERCENT IRON SATURATION 14.1 % (15.0-55.0); Thyroid Stim Hormone (TSH) 0.961 uIU/mL (0.358-3.740)
[2024-12-06 00:16] LABS: Troponin-I HS < 3 pg/mL (3.0-54.0)
[2024-12-06 02:27] LABS: Troponin-I HS < 3 pg/mL (3.0-54.0)
[2024-12-06 04:30] VITALS: BP 105/70; PULSE 53; RESP 16; TEMP 36.6; O2SAT 98
--- NOTE | 2024-12-06 05:55 | MRI_ITS ---
PROCEDURE: BRAIN WITHOUT CONTRAST REASON FOR EXAM: Seizure TECHNIQUE: Multisequence multiplanar MR images of the brain were obtained without the administration of intravenous contrast. COMPARISON: 12/05/2024 FINDINGS: No evidence of acute intracranial hemorrhage, midline shift or mass effect. No diffusion restriction to suggest acute/subacute ischemia. Cerebral volume is maintained. No parenchymal signal abnormalities. No MR evidence of mesial temporal sclerosis. Globes are intact. Paranasal sinuses and mastoid air cells are clear. MRI/Brain without Contrast IMPRESSION: No acute process or parenchymal signal abnormality. Reading Location: [facility]
[2024-12-06 07:15] LABS: Absolute Lymphocyte Count 1.72 X10^3/uL (0.83-4.51); Basophil# 0.03 X10^3/uL; Basophil% 0.7 % (0-1); Eosinophil# 0.09 X10^3/uL; Eosinophils% 2.1 % (0-5); Hematocrit 29.4 % (37-47); Hemoglobin 9.3 g/dL (12.0-15.0); Lymphocyte # 1.72 X10^3/ul (0.83-4.51); Lymphocyte % 39.9 % (19-41); Mean Corp Hgb Conc 31.6 g/dL (32-36); Mean Corpuscular Hgb 26.5 pg (27.0-32.0); Mean Corpuscular Volume 83.8 fL (81-99); Mean Platelet Vol. 10.5 fl (6.2-12.0); Monocyte# 0.49 X10^3/uL; Monocyte% 11.4 % (0-10); NRBC Flagged by Analyzer 0 % (0-5); Neutrophil # 1.98 X10^3/uL (2.7-7.7); Neutrophil % 45.9 % (47-70); Platelet Count 238 K/mm3 (150-450); RBC Distribution Width CV 14.1 % (11.6-14.6); RBC Distribution Width SD 42.8 fl (35.1-43.9); Red Blood Count 3.51 M/mm3 (4.2-5.4); White Blood Count 4.3 K/mm3 (4.4-11.0)
[2024-12-06] MEDS: Ketorolac 15 MG/ML Vial IV ×3 (07:16→22:35)
[2024-12-06 07:37] LABS: ALB/GLOB Ratio 0.9 RATIO (0.9-2.4); AST(SGOT) 12 U/L (15-37); Alanine Aminotransfer ALT/SGPT 17 U/L (13-56); Alkaline Phosphatase 51 U/L (45-117); Anion Gap 6 (5-15); BUN 12 mg/dL (7-18); BUN/Creat Ratio 18.8 RATIO (10-20); Calcium,Total 8.6 mg/dL (8.5-10.1); Chloride 112 mmol/L (98-107); Creatinine, Serum 0.64 mg/dL (0.55-1.02); EST Glomerular Filtration Rate 123 mL/min (>60); Est Glom Filt Rate - Afr Amer 149 mL/min (>60); Estimated Creatinine Clearance 122.09 ml/min; Globulin 3.4 g/dL (2.2-4.2); Glucose 80 mg/dL (74-106); Potassium 3.8 mmol/L (3.5-5.1); Protein, Total 6.4 g/dL (6.4-8.2); Sodium Level 141 mmol/L (136-145); Troponin-I HS < 3 pg/mL (3.0-54.0)
--- NOTE | 2024-12-06 07:39 | EKG12_ITS ---
Test Reason : NENA Blood Pressure : */* mmHG Vent. Rate : 57 BPM Atrial Rate : 57 BPM P-R Int : 160 ms QRS Dur : 82 ms QT Int : 396 ms P-R-T Axes : 69 69 25 degrees QTcB Int : 385 ms Sinus bradycardia with marked sinus arrhythmia Otherwise normal ECG When compared with ECG of 05-Dec-2024 14:26, MANUAL COMPARISON REQUIRED DATA IS UNCONFIRMED Confirmed by KATT HOUGH, OSMEL ([id number]), scientific editor RUDDY MALIK ([id number]) on 12/08/2024 7:29:33 AM Referred By: Confirmed By: OSMEL BOLIVAR MD
[2024-12-06 08:40] VITALS: BP 102/56; BP 94/57; BP 98/69; PULSE 51; PULSE 64
[2024-12-06 08:57] VITALS: TEMP 36.6; O2SAT 98
[2024-12-06] MEDS: oxyCODONE 5 MG Tablet PO ×2 (09:04→13:25)
[2024-12-06] MEDS: Iron Sucrose Complex 200 MG in 0.9% Normal Saline (100mL Bag) 100 ML 220 MG IV (11:06)
--- NOTE | 2024-12-06 13:31 | CASEMGMT ---
Social Work- SW met with pt to discuss self pay status and conduct SDOH. Pt reports that she has a HCAP form. Pt reports that she does not qualify for [facility]ATH[employer] and has applied in the past. Pt cites no concerns with transportation or utilities. Pt has her own apartment and drives her own car. Pt reports no food concerns and no safety concerns. Pt was provided with prescription assistance programs in the event that pt is discharged on medications; pt reports she is not a big medication person and does not currently have any medications that she takes. SW provided printables in addition to the prescription assistance programs for people to people and [facility] as well as [facility]. Pt reports that she already uses [facility]. Pt denies any other needs at this time. SW remains available to follow. CAMILLE Leal
--- NOTE | 2024-12-06 14:28 | PN.HOSP_ITS ---
Reason for Visit Reason for Visit: Diagnoses Syncope and collapse (12/05/24) Dislocation of tooth, initial encounter (12/05/24) Subjective Subjective Saw patient at bedside this afternoon, mother present. Patient was fatigued appearing but otherwise laying back comfortably in bed and in no acute distress. Had multiple test done today including echo, MRI brain and EEG that were all unremarkable. Blood pressure has been borderline low and she was found to be anemic with hemoglobin 9.3. Has significant iron deficiency anemia with ferritin level 4. She reports feeling mildly lightheaded currently. Tolerated iron infusion earlier today well. Discussed with patient and her mom and noted it would be reasonable to give patient more IV fluids here today and keep patient overnight with plan to give another iron infusion tomorrow. If patient is not feeling improved tomorrow, will plan to discharge home. Patient and mother were agreeable with this plan. Objective Data Objective Data Vital Signs: Vital Signs Temp Pulse Resp BP Pulse Ox O2 Del Method 97.8 F 51 L 16 102/56 L 98 Room Air 12/06/24 08:57 12/06/24 08:40 12/06/24 04:30 12/06/24 08:40 12/06/24 08:57 12/06/24 08:57 Oxygen Delivery Method Room Air Weight: 63.9 kg Body Mass Index (BMI) 25.7 Intake & Output: Intake and Output for Last 24 Hours 12/04/24 12/05/24 12/06/24 23:59 23:59 23:59 Intake Total 1000 / 1000 1350 / 1350 Balance 1000 / 1000 1350 / 1350 Lab / Micro Data 12/06/24 05:55 12/06/24 05:55 Labs: Laboratory Results - last 24 hr 12/05/24 12:33: Sodium 141, Potassium 3.4 L, Chloride 106, Carbon Dioxide 25.0, Anion Gap 9, BUN 18, Creatinine 0.76, Estim Creat Clear Calc 100.78, Est GFR (MDRD) Af Amer 123, Est GFR (MDRD) Non-Af 102, BUN/Creatinine Ratio 23.8 H, Glucose 86, Calcium 8.7, Magnesium 1.9, Iron 67, TIBC 474 H, Iron Saturation 14.1 L, Ferritin 4 L, Total Bilirubin 0.40, AST 13 L, ALT 18, Alkaline Phosphatase 53, Total Protein 7.2, Albumin 3.5, Globulin 3.7, Albumin/Globulin Ratio 0.9, Vitamin B12 445, Folate 10.20, TSH 0.961 12/05/24 17:00: Urine Color Yellow, Urine Clarity Clear, Urine pH 6.0, Ur Specific [place] 1.020, Urine Protein 100 H, Urine Glucose (UA) Normal, Urine Ketones 50 H, Urine Occult Blood 25 H, Urine Nitrite Negative, Urine Bilirubin Negative, Urine Urobilinogen Normal, Ur Leukocyte Esterase Negative, Urine RBC 0 SEEN, Urine WBC 0-5 SEEN, Ur Squamous Epith Cells 0-5 SEEN, Urine Bacteria 0 SEEN, Urine Mucus 0 SEEN, Urine Test Negative, Urine Opiates Screen POSITIVE H, Urine Methadone Screen NEGATIVE, Ur Barbiturates Screen NEGATIVE, Ur Phencyclidine Scrn NEGATIVE, Ur Amphetamines Screen NEGATIVE, MDMA (Ecstasy) Screen NEGATIVE, U Benzodiazepines Scrn NEGATIVE, Urine Cocaine Screen NEGATIVE, U Cannabinoids Screen NEGATIVE, Ur Drug Screen Comment 12/05/24 23:45: Troponin I High Sens < 3 L 12/06/24 01:57: Troponin I High Sens < 3 L 12/06/24 05:55: WBC 4.3 L, RBC 3.51 L, Hgb 9.3 L, Hct 29.4 L, MCV 83.8, MCH 26.5 L, MCHC 31.6 L, RDW Std Deviation 42.8, RDW Coeff of Dominick 14.1, Plt Count 238, MPV 10.5, Immature Gran % (Auto) 0.000, Neut % (Auto) 45.9 L, Lymph % (Auto) 39.9, Carlton % (Auto) 11.4 H, Eos % (Auto) 2.1, Baso % (Auto) 0.7, Absolute Neuts (auto) 2.0, Absolute Lymphs (auto) 1.72, Nucleated RBC % 0, Sodium 141, Potassium 3.8, Chloride 112 H, Carbon Dioxide 23.0, Anion Gap 6, BUN 12, Creatinine 0.64, Estim Creat Clear Calc 122.09, Est GFR (MDRD) Af Amer 149, Est GFR (MDRD) Non-Af 123, BUN/Creatinine Ratio 18.8, Glucose 80, Calcium 8.6, Total Bilirubin 0.30, AST 12 L, ALT 17, Alkaline Phosphatase 51, Troponin I High Sens < 3 L, Total Protein 6.4, Albumin 3.0 L, Globulin 3.4, Albumin/Globulin Ratio 0.9 Radiography Diagnostic Testing: Radiology Impression Brain CT 12/05/24 14:09 IMPRESSION: Normal examination. Reading Location: [place] [address] Facial/Sinus 12/05/24 14:09 IMPRESSION: No acute abnormality is seen. One or more dose reduction techniques were used (e.g., Automated exposure control, adjustment of the mA and/or kV according to patient size, use of iterative reconstruction technique). Reading Location: [place] [address] Echocardiogram 12/05/24 22:25 Interpretation Summary Normal LV size. Left ventricular systolic function is normal. The left ventricular ejection fraction is 70 %. Normal diastology for age. Structurally normal valves. Ordering Physician: Sylvie Devries Referring Physician: Eleanor PCP Performed By: Miladis Heller RDCS Brain MRI 12/06/24 05:55 IMPRESSION: No acute process or parenchymal signal abnormality. Reading Location: [place] Rhythm Strip Rhythm Strip: Sinus Rhythm Rate: 67 Ectopy: None Physical Exam Const alert, oriented x3, no apparent distress and average body habitus Constitutional Narrative: Young female, fatigued appearing but otherwise laying back comfortably in bed, conversing normally and in no acute distress. General Appearance: cooperative and comfortable HEENT normocephalic, head/scalp atraumatic, hearing grossly normal bilaterally and nasal mucous membranes and turbinates normal HEENT Narrative: Lip bruise noted, stable. Eyes PERRL, EOMs intact bilaterally and conjunctivae normal Neck full ROM Chest inspection of chest normal Resp normal respiratory effort, normal air movement, no use of accessory muscles and clear to auscultation bilaterally Cardio regular rate, regular rhythm, no murmurs and peripheral pulses 2+ throughout GI normal to inspection, nondistended, normoactive bowel sounds, soft to palpation, non-tender and non-distended Back/Spine normal ROM Extremity normal to inspection, full ROM and no pedal edema Skin no rashes or lesions noted Neuro moves all extremities and no focal motor deficits Speech: speech normal Psych mental status grossly normal Assessment & Plan Assessment/Plan (1) Syncope and collapse: (2) Iron deficiency anemia: PLAN: Plan Patient is a 23-year-old female who presented [facility] ED on 12/05/2024 after a suspected syncopal episode at home. 1. Syncope ? Presented after suspected syncopal episode at home. Patient fell and hit her face with tooth injury as noted below. Unclear if she had prodromal symptoms. TTE, MRI brain and spot EEG all unremarkable. Teleneurology evaluated the patient and noted low risk for seizure, no need to start antiseizure medications. Recommended increased sodium intake as blood pressure is low normal. Orthostatic vitals borderline on 12/06. Will give patient another IV fluid bolus and plan to recheck orthostatic vitals tomorrow morning. No concerns on cardiac monitoring. 2. Iron deficiency anemia ? Hemoglobin 9.3 on admit, MCV 83. Last hemoglobin was from 2017, was 12-13 at that time. She notably did have anemia to hemoglobin 9.1 in October 2017. Iron studies on admit showed low iron and iron saturation levels with ferritin level of 4. Patient does report somewhat heavy menstrual cycles. Has normal bowel movements, low likelihood of other etiology for blood loss. Given IV iron infusion on 12/06 and will plan to give another infusion on 12/07. Recommend repeat iron studies in the outpatient setting in 6 to 8 weeks to ensure improvement. 3. Facial injury with tooth avulsion ? CT facial/sinus on admit with no acute findings. Tooth was replaced in the ED with packing. Will need outpatient dentistry follow-up after discharge. DVT prophylaxis: Low risk, ambulate CODE STATUS: Full code, verified Expected disposition: Home, 1 to 2 days *Patient notably was admitted under observation status but given severe iron deficiency and ongoing presyncopal symptoms, will need treatment hospitalized for another night. Will transition patient to inpatient status. Total clinical time spent by myself addressing the patient's medical issues, reviewing all the data, and collaborating with patient's care team: 35 minutes. Charges/Coding Visit Charges Inpatient E&M: 58553 Subs Hosp L2
[2024-12-06] MEDS: Lactated Ringers 1,000 ML 999 ML IV (17:24)
[2024-12-06 17:28] VITALS: BP 105/63; PULSE 55; RESP 12; TEMP 36.6; O2SAT 98
[2024-12-06] MEDS: Acetaminophen 325 MG Tablet 650 MG PO (19:53)
[2024-12-06] MEDS: 0.9% Saline Lock 10 ML Syringe IV ×2 (19:54→22:35)
--- NOTE | 2024-12-06 22:28 | CON.PCM.NE_ITS ---
Assessment and Plan: Neuro Assessment/Plan ABDOUL MANCINI is a 23 F with a past medical history of anemia and previous LOC, being evaluated by Teleneurology for syncope versus seizure. Seizure is unlikely. With normal MRI and normal EEG and no other red flags on semiology or history and very plausible risk factors for syncope including BP, syncope is much more likely. I would NOT start an antiseizure medication. Will defer to primary team on any cardiology or metabolic workup but I did funeral prearrangement counselor the patient to increase salt intake to 10 g daily. She should follow up with an outpatient neurologist at least one time. She should not drive until that appointment. Diagnosis: likely syncope I personally attended this patient and spent a total time of 30 minutes evaluating this patient including clinical assessment, review of chart, medical history imaging, and determining appropriate treatment and workup. Sudhir Quiroga MD [employer] [facility] Teleneurology HPI Consult Data Date of Consult: 12/06/24 HPI Narrative HPI Narrative: ABDOUL MANCINI, is a 23 F on whom we are consutled for concern for syncope vs seizure after unwitness fall. Mother is here and amplifies history. Patient had what family beleives to be a seizure 10 years ago, when she fell and had shaking with LOC and post-ictal period. No further description of semiology. Workup a t the time did not show brain abnormality. Mother does not think she had EEG. She was never placed on antiseizure drug. Also a blackout 5 years ago. Fall that precipitated presentation was unwitnessed but while texting mother. Struck face with dental damage. She does not remember episode - last thing she remembers was texting, first thing after episode she remembers was ambulance. Currently feels very tired and al ittle dizzy when she stands and lightheaded when she walks. Of note blood pressure in low normal range here in hospital, and she does have anemia problems. On discussion she thinks it's possible she was dehydrated. She avoids salt in her diet. SHe does exercise regularly. MRI Brain and EEG were normal here. [facility] Medical History (Updated 12/06/24 @ 14:[address] Adán Wallace, DO) Seizure Anemia Home Medications ?Medication ?Instructions ?Recorded ?Last Taken ?Type NK 12/05/24 Unknown History Allergy/AdvReac Type Severity Reaction Status Date / Time tree nut Allergy Unknown Other Verified 12/06/24 15:46 pistachio nut Allergy Swelling Verified 12/05/24 11:37 Family History (Updated 12/05/24 @ 20:[address] Sylvie Devries MD) Mother No problems noted. Father Heart disease Hypertension Heart failure Grandfather , Paternal. Heart disease Heart failure Hypertension PAF (paroxysmal atrial fibrillation) Grandfather , Paternal Heart disease Surgical History No history of previous surgery Social History (Updated 12/05/24 @ 20:[address] Sylvie Devries MD) household members: none housing: apartment Smoking Status: Current every day smoker tobacco type: e-cigarettes alcohol intake: current alcohol intake frequency: holidays/special occasions only substance use type: does not use Vital Signs Vital Signs Vital Signs: 12/05/24 22:43 12/06/24 04:30 12/06/24 08:35 Temperature 97.6 F L 97.8 F Temperature Source Temporal Temporal Pulse Rate 51 L 53 L Pulse Rate [Lying] Pulse Rate [Sitting (for 1 minute prior to obtaining)] Pulse Rate [Standing (for 1 minute prior to obtaining)] Respiratory Rate 18 16 Respiratory Effort Normal Non-Labored Respiratory Depth Normal Respiratory Pattern Normal Blood Pressure 107/61 105/70 Blood Pressure [Lying] Blood Pressure [Sitting (for 1 minute prior to obtaining)] Blood Pressure [Standing (for 1 minute prior to obtaining)] Blood Pressure Mean 76 81 Blood Pressure Mean [Lying] Blood Pressure Mean [Sitting (for 1 minute prior to obtaining)] Blood Pressure Mean [Standing (for 1 minute prior to obtaining)] Blood Pressure Source Blood Pressure Position Blood Pressure Location Pulse Ox 99 98 Oxygen Delivery Method Room Air Room Air Room Air 12/06/24 08:40 12/06/24 08:57 12/06/24 17:28 Temperature 97.8 F 97.9 F Temperature Source Temporal Temporal Pulse Rate 55 L Pulse Rate [Lying] 51 L Pulse Rate [Sitting (for 1 minute prior to obtaining)] 64 Pulse Rate [Standing (for 1 minute prior to obtaining)] 64 Respiratory Rate 12 Respiratory Effort Respiratory Depth Respiratory Pattern Blood Pressure 105/63 Blood Pressure [Lying] 102/56 L Blood Pressure [Sitting (for 1 minute prior to obtaining)] 98/69 Blood Pressure [Standing (for 1 minute prior to obtaining)] 94/57 L Blood Pressure Mean 77 Blood Pressure Mean [Lying] 71 Blood Pressure Mean [Sitting (for 1 minute prior to obtaining)] 78 Blood Pressure Mean [Standing (for 1 minute prior to obtaining)] 69 Blood Pressure Source Monitor Blood Pressure Position Supine Blood Pressure Location Left Arm Pulse Ox 98 98 Oxygen Delivery Method Room Air Room Air Weight Weight: 63.9 kg Body Mass Index (BMI) 25.7 EEG Results Procedure Details EEG Procedure Details: ABDOUL MANCINI is a 23 year old F with a past medical history of , who presents for evaluation of Electroencephalogram on DATE at TIME Physical Exam Narrative AOx3, naming and repeition intact, able historian. Flat affect, soft speech Lip injury evident but no tongue laceration. EOMI, no facial droop, facial sensation intact throughout, tongue midline, no dysarthria, head rotation intact Strength 5/5 SA, EE, EF, [employer] Supervisor, HF, PF/DF bialterally. Sensation intact distal extgremiteis. HtS and FtN intact Lab / Micro Data 12/06/24 05:55 12/06/24 05:55 Labs: Laboratory Results - last 24 hr 12/05/24 12:33: Iron 67, TIBC 474 H, Iron Saturation 14.1 L, Ferritin 4 L, Folate 10.20, TSH 0.961 12/05/24 23:45: Troponin I High Sens < 3 L 12/06/24 01:57: Troponin I High Sens < 3 L 12/06/24 05:55: WBC 4.3 L, RBC 3.51 L, Hgb 9.3 L, Hct 29.4 L, MCV 83.8, MCH 26.5 L, MCHC 31.6 L, RDW Std Deviation 42.8, RDW Coeff of Dominick 14.1, Plt Count 238, MPV 10.5, Immature Gran % (Auto) 0.000, Neut % (Auto) 45.9 L, Lymph % (Auto) 39.9, Jennings % (Auto) 11.4 H, Eos % (Auto) 2.1, Baso % (Auto) 0.7, Absolute Neuts (auto) 2.0, Absolute Lymphs (auto) 1.72, Nucleated RBC % 0, Sodium 141, Potassium 3.8, Chloride 112 H, Carbon Dioxide 23.0, Anion Gap 6, BUN 12, Creatinine 0.64, Estim Creat Clear Calc 122.09, Est GFR (MDRD) Af Amer 149, Est GFR (MDRD) Non-Af 123, BUN/Creatinine Ratio 18.8, Glucose 80, Calcium 8.6, Total Bilirubin 0.30, AST 12 L, ALT 17, Alkaline Phosphatase 51, Troponin I High Sens < 3 L, Total Protein 6.4, Albumin 3.0 L, Globulin 3.4, Albumin/Globulin Ratio 0.9 Rhythm Strip Rhythm Strip: Sinus Rhythm Rate: 67 Ectopy: None Imaging Radiology Impression Echocardiogram 12/05/24 22:25 Interpretation Summary Normal LV size. Left ventricular systolic function is normal. The left ventricular ejection fraction is 70 %. Normal diastology for age. Structurally normal valves. Ordering Physician: Sylvie Devries Referring Physician: Eleanor PCP Performed By: Miladis Heller RDCS Brain MRI 12/06/24 05:55 IMPRESSION: No acute process or parenchymal signal abnormality. Reading Location: [facility] Active Medications Active Medications Active Medications: Current Medications Generic Name Dose Route Start Last Admin Trade Name Freq PRN Reason Stop Dose Admin Acetaminophen 650 mg 12/05/24 22:25 12/06/24 19:53 Acetaminophen 325 Mg Tablet PO 650 mg Q4H PRN PRN Administration Fever, pain 1-08/07 Al Hydroxide/Mg Hydroxide 30 ml 12/05/24 22:25 Mag Hydrox/Al Hydrox/Simeth 30 Ml Udc PO Q6H PRN PRN Gastric Burning Albuterol Sulfate 2.5 mg 12/05/24 22:25 Albuterol 2.5 Mg/3 Ml Vial.Neb. INHALATION Q2H PRN PRN Dyspnea, wheezing Guaifenesin 20 ml 12/05/24 22:25 Guaifenesin 10 Ml Udc (200mg/10ml) PO Q4H PRN PRN COUGH Hydralazine HCl 10 mg 12/05/24 22:25 Hydralazine 20 Mg/Ml Vial IV Q4H PRN PRN SBP > 160 Protocol Sodium Chloride 100 mls @ 15 mls/hr 12/05/24 22:43 IV .Q6H40M PRN Saline Flush Sodium Chloride 100 mls @ 15 mls/hr 12/05/24 22:43 IV .Q6H40M PRN Additional IVPB Infusion Iron Sucrose 200 mg/ Sodium 110 mls @ 220 mls/hr 12/07/24 08:30 Chloride IV 12/07/24 08:59 X1 ONE Ketorolac Tromethamine 15 mg 12/05/24 22:25 12/06/24 13:25 Ketorolac 15 Mg/Ml Vial IV 12/07/24 06:01 15 mg Q8 SHARMIN Administration Melatonin 3 mg 12/05/24 22:25 Melatonin 3 Mg Tablet PO QHS PRN PRN INSOMNIA Ondansetron HCl 4 mg 12/05/24 22:25 Ondansetron 4 Mg/2 Ml Vial IV Q8H PRN PRN NAUSEA/VOMITING Oxycodone HCl 5 mg 12/05/24 22:25 12/06/24 13:25 Oxycodone 5 Mg Tablet PO 5 mg Q4H PRN PRN Administration Pain Score 4-10 Prochlorperazine Edisylate 5 mg 12/05/24 22:25 Prochlorperazine 10 Mg/2 Ml Vial IV Q4H PRN PRN Breakthrough Nausea/Vomiting Senna/Docusate Sodium 2 tablet 12/05/24 22:25 Senna/Docusate Sodium 1 Tablet PO BID PRN PRN Constipation Sodium Chloride 10 - 40 ml 12/05/24 22:43 12/06/24 19:54 0.9% Saline Lock 10 Ml Syringe IV 10 ml UD PRN Administration SALINE FLUSH
[2024-12-06] MEDS: MELATONIN 3 MG TABLET PO (22:37)
[2024-12-06 22:43] VITALS: BP 100/66; PULSE 62; RESP 15; TEMP 36.9; O2SAT 99
[2024-12-07 04:55] VITALS: BP 94/57; PULSE 64; RESP 14; TEMP 37.2; O2SAT 99
[2024-12-07 05:08] LABS: Hemoglobin 8.8 g/dL (12.0-15.0); Mean Corp Hgb Conc 30.3 g/dL (32-36); Mean Corpuscular Hgb 25.7 pg (27.0-32.0); Mean Corpuscular Volume 84.5 fL (81-99); Mean Platelet Vol. 9.9 fl (6.2-12.0); Platelet Count 189 K/mm3 (150-450); RBC Distribution Width CV 13.8 % (11.6-14.6); RBC Distribution Width SD 42.2 fl (35.1-43.9); Red Blood Count 3.43 M/mm3 (4.2-5.4); White Blood Count 3.6 K/mm3 (4.4-11.0)
[2024-12-07] MEDS: Ketorolac 15 MG/ML Vial IV (06:26)
[2024-12-07] MEDS: 0.9% Saline Lock 10 ML Syringe IV ×2 (06:26→08:25)
[2024-12-07] MEDS: Iron Sucrose Complex 200 MG in 0.9% Normal Saline (100mL Bag) 100 ML 220 MG IV (08:25)
[2024-12-07 08:48] VITALS: BP 112/46; PULSE 63; RESP 16; TEMP 36.8; O2SAT 99
--- NOTE | 2024-12-07 10:38 | DCINST_ITS ---
Discharge Instructions Diet Discharge Diet: No restrictions DC O2, CPAP, BIPAP needs Home O2 Discharge instructions: No Dressing / Incision Discharge Activity: May Not Drive (Until follow-up appointment with neurology) Follow Up Care Test Results: Test results from this visit will be discussed in further detail at your follow- up appointment, if applicable. Discharge Plan Admission Admit Date/Time: 12/05/24 19:58 Primary Reason for Your Visit: Episode of passing out Attending Provider: Adán Wallace Primary Care Provider: Care Physician,No Primary Consulting Providers: Cheri Cooper; Marce Ireland; Latesha Otoole; [place]; Rambo Reeves; Mann Holcomb; RICKI CALVO; Saadia Goyal; Rochelle Kelly; Corbin Rascon; Genia Pappas; Alexandro Najera; Gissel Mcneill; Sri Cote; Daniele Escoto; Diana Friedman; Abdiel Callaway; Larry North; Michael Garces; Willie Sharma; Lisseth Stone; Sudhir Quiroga; Sal Griffiths; Lul Garner; Lea Thompson; Joellen John; Sylvie Devries Instructions Additional Instructions / Restrictions: Please take an iron tablet every other day going forward. Please establish with both a primary care doctor and a neurologist and schedule appointments with them for follow-up in the next few weeks. Discharge Orders/Prescriptions Prescriptions: New ferrous sulfate 324 mg (65 mg iron) tablet,delayed release (DR/EC) 324 mg PO QODAY 30 Days Qty: 15 0RF Referrals / Follow Up: Care Physician,No Primary [Primary Care Provider] - Disposition Disposition (needs filled in before D/C Order can be placed): Home, Self Care
--- NOTE | 2024-12-07 10:38 | DS.PCM_ITS ---
Providers Date of Admission: 12/05/24 Date of Discharge: 12/07/24 Primary Care Physician: No Primary Care Phys Consultations 12/05/24 22:25 Consult: Tele-Neurology Routine Consulting Provider: [facility] Reason for Consult: ? syncope versus EMERGENT Consult: No Notified: Yes Date Notified: 12/06/24 Time Notified: 05:08 Method of Notification: Answering Service Nursing Unit Staff Notify [facility] of Tele-Neurology Consult: Yes Reason For Visit: SYNCOPE VERSUS SEIZURE WITH COLLAPSE, DENTAL Diagnosis Discharge Diagnosis (1) Syncope and collapse: Status: Acute Code(s): R55 - Syncope and collapse (2) Iron deficiency anemia: Status: Acute Code(s): D50.9 - Iron deficiency anemia, unspecified Medications at Discharge Home Medications ferrous sulfate 324 mg (65 mg iron) tablet,delayed release 324 mg PO QODAY 30 days #15 tabs 12/07/24 Hospital Course Operations None Procedures Electroencephalogram, EKG, Transthoracic echo and - (MRI brain, CT facial/sinus, CT brain) Summary of Care Provided Minutes Spent on Discharge: 35 Hospital Course: Patient is a 23-year-old female who presented [facility] ED on 12/05/2024 after a suspected syncopal episode at home. Hospital course as noted below. Patient discharged home in stable condition on 12/07. 1. Syncope ? Presented after suspected syncopal episode at home. Patient fell and hit her face with tooth injury as noted below. Unclear if she had prodromal symptoms. TTE, MRI brain and spot EEG all unremarkable. Teleneurology evaluated the patient and noted low risk for seizure, no need to start antiseizure medications. Recommended increased sodium intake as blood pressure is low normal. Orthostatic vitals borderline on 12/06. Given another IV fluid bolus on 12/06 with improvement in blood pressure and energy level. No arrhythmias noted during hospitalization and given normal echo, very low likelihood that syncope was secondary to arrhythmia. No need for heart monitor on discharge. Stable for discharge home on 12/07. 2. Iron deficiency anemia ? Hemoglobin 9.3 on admit, MCV 83. Last hemoglobin was from 2017, was 12-13 at that time. She notably did have anemia to hemoglobin 9.1 in October 2017. Iron studies on admit showed low iron and iron saturation levels with ferritin level of 4. Patient does report somewhat heavy menstrual cycles. Has normal bowel movements, low likelihood of other etiology for blood loss. Given IV iron infusions on 12/06 and 12/07 and discharged on p.o. iron supplement. Recommend repeat iron studies in the outpatient setting in 6 to 8 weeks to ensure improvement. 3. Facial injury with tooth avulsion ? CT facial/sinus on admit with no acute findings. Tooth was replaced in the ED with packing. Will need outpatient dentistry follow-up after discharge. Total clinical time spent by myself addressing the patient's medical issues, reviewing all the data, and collaborating with patient's care team: 35 minutes. Physical Exam Const alert, oriented x3, no apparent distress and average body habitus Constitutional Narrative: Young female, mildly fatigued appearing but energy improved from admission, otherwise laying back comfortably in bed, conversing normally and in no acute distress. General Appearance: cooperative and comfortable HEENT normocephalic, head/scalp atraumatic, hearing grossly normal bilaterally and nasal mucous membranes and turbinates normal HEENT Narrative: Lip bruise noted, stable. Eyes PERRL, EOMs intact bilaterally and conjunctivae normal Neck full ROM Chest inspection of chest normal Resp normal respiratory effort, normal air movement, no use of accessory muscles and clear to auscultation bilaterally Cardio regular rate, regular rhythm, no murmurs and peripheral pulses 2+ throughout GI normal to inspection, nondistended, normoactive bowel sounds, soft to palpation, non-tender and non-distended Back/Spine normal ROM Extremity normal to inspection, full ROM and no pedal edema Skin no rashes or lesions noted Neuro moves all extremities and no focal motor deficits Speech: speech normal Psych mental status grossly normal Weight / BMI Weight Weight: 63.9 kg Body Mass Index (BMI) 25.7 ABG / Lab / Microbiology Data 12/07/24 04:46 12/06/24 05:55 Laboratory: Laboratory Results - last 24 hr 12/07/24 04:46: WBC 3.6 L, RBC 3.43 L, Hgb 8.8 L, Hct 29.0 L, MCV 84.5, MCH 25.7 L, MCHC 30.3 L, RDW Std Deviation 42.2, RDW Coeff of Dominick 13.8, Plt Count 189, MPV 9.9 Radiography Diagnostic Testing: Radiology Impression Echocardiogram 12/05/24 22:25 Interpretation Summary Normal LV size. Left ventricular systolic function is normal. The left ventricular ejection fraction is 70 %. Normal diastology for age. Structurally normal valves. Ordering Physician: Sylvie Devries Referring Physician: Eleanor PCP Performed By: Miladis Heller RDCS Brain MRI 12/06/24 05:55 IMPRESSION: No acute process or parenchymal signal abnormality. [facility] Inst[facility] DC O2, CPAP, BIPAP Needs Home O2 Discharge instructions: No Meaningful Use Info Meaningful Use Meaningful Use Diagnoses (Choose all that apply): None applicable Ischemic Stroke Statin Dosing Therapy Reference: STATIN DOSE THERAPY REFERENCE: * Patients > 75 years receive moderate or high dose statin therapy. * Patients 75 years or YOUNGER should receive HIGH intensity statin dose unless contraindicated. You will be required to document reason for non-treatment if statin daily dose does not meet guidelines. HIGH DOSE STATIN THERAPY DAILY Atorvastatin > than or = to 40 mg Rosuvastatin > than or = to 20 mg Amlodipine + Atorvastatin > than or = to 2.5/40 mg Ezetimibe + Simvastatin 10/80 mg Simvastatin 80mg Discharge Plan Admission Admit Date/Time: 12/05/24 19:58 Primary Reason for Your Visit: Episode of passing out Attending Provider: Adán Wallace Primary Care Provider: Care Physician,No Primary Consulting Providers: Cheri Cooper; Marce Ireland; Latesha Otoole; [place]; Rambo Reeves; Mann Holcomb; RICKI CALVO; Saadia Goyal; Rochelle Kelly; Corbin Rascon; Genia Pappas; Alexandro Najera; Gissel Mcneill; Sri Cote; Daniele Escoto; Diana Friedman; Abdiel Callaway; Larry North; Michael Garces; Willie Sharma; Lisseth Stone; Sudhir Quiroga; Sal Griffiths; Lul Garner; Lea Thompson; Joellen John; Sylvie Devries Instructions Additional Instructions / Restrictions: Please take an iron tablet every other day going forward. Please establish with both a primary care doctor and a neurologist and schedule appointments with them for follow-up in the next few weeks. Discharge Orders/Prescriptions Prescriptions: New ferrous sulfate 324 mg (65 mg iron) tablet,delayed release (DR/EC) 324 mg PO QODAY 30 Days Qty: 15 0RF Referrals / Follow Up: Care Physician,No Primary [Primary Care Provider] - Disposition Disposition (needs filled in before D/C Order can be placed): Home, Self Care Charges/Coding Visit Charges Inpatient E&M: 29339 Disch Hosp >30min
[2024-12-07 11:36] VITALS: BP 102/62; PULSE 55; RESP 16; TEMP 36.7; O2SAT 99
== END 2024-12-07 10:43 | disposition home or self-care (01) ==
LOC: ED 15:24 → PCU 20:42
PROVIDERS: Admitting Provider Family Medicine; Emergency Provider Emergency Medicine; Visit Provider Hospitalist
DX: R55 Syncope and collapse (principal); R56.9 Unspecified convulsions; D50.9 Iron deficiency anemia, unspecified; R10.2 Pelvic and perineal pain; D72.819 Decreased white blood cell count, unspecified; S03.2XXA Dislocation of tooth, initial encounter; I49.8 Other specified cardiac arrhythmias; F17.290 Nicotine dependence, other tobacco product, uncomplicated; W19.XXXA Unspecified fall, initial encounter; Y92.89 Other specified places as the place of occurrence of the external cause; E87.6 Hypokalemia
CPT/HCPCS: 41899; 36415; 70450; 70486; 70551; 80053; 80307; 81001; 81025; 82607; 82728; 82746; 83540; 83550; 83735; 84443; 84484; 85025; 85027; 93005; 93306; 95819; 96361; 96365; 96366; 96375; 96376; 97802; 99221; 99285; J1756; A4216; G0378